=== PATIENT | female | born 1975 | race Caucasian/White ===

== ENCOUNTER 2016-10-08 13:41 | Emergency (ER) | payer BC, OTHER ==
[~2016-10-08] VITALS: Ht 160 cm; Wt 52.0 kg
[~2016-10-08 13:41] MED LIST: PERC5TAB12 PO
[2016-10-08 13:42] VITALS: BP 181/87; PULSE 115; RESP 24; TEMP 98.2; O2SAT 95
[2016-10-08] MEDS ORDERED: SODIUM CHLOR 0.9% 1000 ML INJ 1,000 ML IV SCH (14:17)
[2016-10-08] MEDS ORDERED: DICYCLOMINE HCL 20 MG/2 ML VIAL IM ONE (14:30)
[2016-10-08] MEDS ORDERED: SODIUM CHLORIDE 0.9% FLUSH 5 ML FLUSH IVF PRN (14:30)
[2016-10-08] MEDS ORDERED: LORazepam 2 MG/ML VIAL IV PUSH ONE (14:30)
--- NOTE | 2016-10-08 14:43 | PD ---
HPI . Abdominal pain with nausea and vomiting. Chief Complaint: GI Complaint Time Seen by Provider: 14:17 Travel History International Travel<30 days: No Contact w/Intl Traveler<30days: No Traveled to known affect area: No History of Present Illness HPI Patient presents with the acute onset of abdominal pain with nausea and vomiting. Symptoms started this morning. He believes that she is constipated. She has taken laxatives at home. She vomited the first dose of the laxative. She was able to keep down second dose of the laxative. She has not had any relief of her abdominal pain and constipation with laxative. Patient reports she is currently on amoxicillin and tramadol for a dental abscess. PFSH Past Medical History Medical other: Yes (basal cell cancer ) Influenza Vaccination: No ?: Not LMP: 09/14/16 Past Surgical History Surgical History: No Previous Surgery Social History Alcohol Use: No Tobacco Use: No Substance Use: No Allergies-Medications (Allergen,Severity, Reaction): Coded Allergies: Polysporin (Verified Allergy, Unknown, Itching, 11/29/13) TOPICAL OINTMENT Reported Meds & Prescriptions Reported Meds & Active Scripts Active Phenergan (Promethazine HCl) 25 Mg Tab 25 Mg PO Q6H PRN Reported Percocet 5-325 mg (Oxycodone/Acetaminophen) 5 Mg/325 Mg Tab 1-2 Tab PO Q6H PRN Review of Systems Except as stated in HPI: all other systems reviewed are Neg General / Constitutional: No: Fever, Chills HENT: Positive: Dental Difficulties Gastrointestinal: Positive: Nausea, Vomiting, Abdominal Pain, Constipation, No : Diarrhea Genitourinary: No: Urgency, Frequency, Dysuria Physical Exam Narrative GENERAL: The patient is lying on the stretcher in a position. She is very reluctant to lie flat on her back. SKIN: Warm and dry. HEAD: Atraumatic. Normocephalic. EYES: Pupils equal and round. ENT: No nasal bleeding or discharge. Mucous membranes pink and moist. NECK: Trachea midline. CARDIOVASCULAR: Regular rate and rhythm. RESPIRATORY: No accessory muscle use. GASTROINTESTINAL: Abdomen soft. Diffusely tender. Nondistended. MUSCULOSKELETAL: No obvious deformities. No edema. NEUROLOGICAL: Awake and alert. No obvious cranial nerve deficits. Motor grossly within normal limits. Normal speech. PSYCHIATRIC: Appropriate mood and affect; insight and judgment normal. Data Data Last Documented VS Vital Signs Date Time Temp Pulse Resp B/P Pulse Ox O2 Delivery O2 Flow Rate FiO2 10/08/16 13:42 98.2 115 24 181/87 95 Orders Complete Blood Count With Diff (10/08/16 14:17) Comprehensive Metabolic Panel (10/08/16 14:17) Lipase (10/08/16 14:17) Lactic Acid (10/08/16 14:17) Urinalysis - C+S If Indicated (10/08/16 14:17) Abdomen, Flat & Upright (10/08/16 ) Iv Access Insert/Monitor (10/08/16 14:17) Sodium Chlor 0.9% 1000 Ml Inj (Ns 1000 M (10/08/16 14:17) Sodium Chloride 0.9% Flush (Ns Flush) (10/08/16 14:30) Electrocardiogram (10/08/16 14:17) Lorazepam Inj (Ativan Inj) (10/08/16 14:30) Dicyclomine Inj (Bentyl Inj) (10/08/16 14:30) Ed Urine Pregnancytest Poc (10/08/16 14:19) Ondansetron Inj (Zofran Inj) (10/08/16 15:25) Ondansetron Inj (Zofran Inj) (10/08/16 15:30) Labs Laboratory Tests Test 10/08/16 10/08/16 14:36 16:14 White Blood Count 12.5 TH/MM3 Red Blood Count 4.75 MIL/MM3 Hemoglobin 15.3 GM/DL Hematocrit 44.0 % Mean Corpuscular Volume 92.6 FL Mean Corpuscular Hemoglobin 32.1 PG Mean Corpuscular Hemoglobin 34.7 % Concent Red Cell Distribution Width 12.4 % Platelet Count 232 TH/MM3 Mean Platelet Volume 8.7 FL Neutrophils (%) (Auto) 87.8 % Lymphocytes (%) (Auto) 8.0 % Monocytes (%) (Auto) 3.6 % Eosinophils (%) (Auto) 0.1 % Basophils (%) (Auto) 0.5 % Neutrophils # (Auto) 11.0 TH/MM3 Lymphocytes # (Auto) 1.0 TH/MM3 Monocytes # (Auto) 0.5 TH/MM3 Eosinophils # (Auto) 0.0 TH/MM3 Basophils # (Auto) 0.1 TH/MM3 CBC Comment DIFF FINAL Differential Comment Sodium Level 140 MEQ/L Potassium Level 4.0 MEQ/L Chloride Level 104 MEQ/L Carbon Dioxide Level 21.8 MEQ/L Anion Gap 14 MEQ/L Blood Urea Nitrogen 11 MG/DL Creatinine 0.85 MG/DL Estimat Glomerular Filtration 74 ML/MIN Rate Random Glucose 163 MG/DL Lactic Acid Level 3.4 mmol/L Calcium Level 9.0 MG/DL Total Bilirubin 0.7 MG/DL Aspartate Amino Transf 15 U/L (AST/SGOT) Alanine Aminotransferase 18 U/L (ALT/SGPT) Alkaline Phosphatase 77 U/L Total Protein 7.9 GM/DL Albumin 4.2 GM/DL Lipase 83 U/L Urine Color YELLOW Urine Turbidity CLEAR Urine pH 8.5 Urine Specific [place] 1.013 Urine Protein TRACE mg/dL Urine Glucose (UA) TRACE mg/dL Urine Ketones 40 mg/dL Urine Occult Blood TRACE Urine Nitrite NEG Urine Bilirubin NEG Urine Urobilinogen LESS THAN 2.0 MG/DL Urine Leukocyte Esterase NEG Urine RBC 18 /hpf Urine WBC LESS THAN 1 /hpf Urine Squamous Epithelial <1 /hpf Cells Urine Bacteria RARE /hpf Urine Mucus FEW /lpf Microscopic Urinalysis Comment CULT NOT INDICATED MDM Medical Decision Making Medical Screen Exam Complete: Yes Emergency Medical Condition: Yes Differential Diagnosis Differential diagnosis of abdominal pain includes but is not limited to gastritis, pancreatitis, hepatitis, gastroenteritis, gallbladder disease, constipation, urinary retention, UTI, peptic ulcer disease, diverticulitis or appendicitis Narrative Course Patient presents for evaluation of acute abdominal pain associated with vomiting. She believes that she is constipated. Last Impressions Abdomen X-Ray 10/08/16 0000 Signed Impressions: Service Date/Time: Saturday, October 08, 2016 14:56 - CONCLUSION: No acute abnormality is identified. Gonzalo Estrada MD 3:07 PM Patient reports that her symptoms are resolved. CBC & BMP Diagram 10/08/16 14:36 Her lactic acid was elevated at 3.4. However, the patient reports that she is markedly improved. I will not repeat the lactic acid level. UA shows evidence of dehydration but no infection. Diagnosis Primary Impression: Vomiting Qualified Code: R11.2 - Non-intractable vomiting with nausea, unspecified vomiting type Additional Impression: Abdominal pain Qualified Code: R10.84 - Generalized abdominal pain Scripts Promethazine (Phenergan)25 Mg Tab25 Mg PO Q6H PRN (Nausea/Vomiting) #10 TAB Ref 0 Prov:Genesis Sanchez MD 10/08/16 Disposition: 01 DISCHARGE HOME Condition: Stable Genesis Sanchez MD Oct 08, 2016 14:43
--- NOTE | 2016-10-08 14:59 | RADRPT ---
EXAM DATE/TIME: 10/08/2016 14:56 [facility] COMPARISON: No previous studies available for comparison. INDICATIONS : Abdomen Pain MEDICAL HISTORY : None. SURGICAL HISTORY : None. ENCOUNTER: Initial ACUITY: 1 day PAIN SCORE: 10/10 LOCATION: Abdomen FINDINGS: Supine and upright views of the abdomen demonstrate air within bowel in a nonobstructive pattern. No organomegaly or abnormal calcifications are identified. No abnormal mass effect is appreciated. Uprig ht image demonstrates no free intraperitoneal air or significant air-fluid level. Visualized bones de monstrate no acute finding and lower lung zones are clear. CONCLUSION: No acute abnormality is identified. Gonzalo Estrada MD on October 08, 2016 at 14:57 Board Certified Radiologist. This report was verified electronically.
[2016-10-08 15:08] LABS: BASOPHIL # 0.1 TH/MM3 (0-0.2); BASOPHIL % 0.5 % (0.0-2.0); EOSINOPHIL % 0.1 % (0.0-4.0); HEMO FLAGS DIFF FINAL; MEAN CELL VOLUME 92.6 FL (80.0-100.0); MEAN CORPUSCULAR HEMOGLOBIN 32.1 PG (27.0-34.0); MEAN CORPUSCULAR HGB CONC 34.7 % (32.0-36.0); MONO % 3.6 % (0.0-8.0); NEUT % 87.8 % (16.0-70.0); PLATELET COUNT 232 TH/MM3 (150-450); RED BLOOD COUNT 4.75 MIL/MM3 (4.00-5.30); RED CELL DISTRIBUTION WIDTH 12.4 % (11.6-17.2); WHITE BLOOD COUNT 12.5 TH/MM3 (4.0-11.0)
[2016-10-08 15:25] LABS: ALT (GPT) 18 U/L (10-53); ANION GAP 14 MEQ/L (5-15); AST (GOT) 15 U/L (15-37); BICARBONATE 21.8 MEQ/L (21.0-32.0); BLOOD UREA NITROGEN 11 MG/DL (7-18); CHLORIDE 104 MEQ/L (98-107); GLOMERULAR FILTRATION RATE 74 ML/MIN (>89); SODIUM (NA) 140 MEQ/L (136-145)
[2016-10-08] MEDS ORDERED: ONDANSETRON HCL 4 MG/2 ML VIAL ONE (15:25)
[2016-10-08 15:28] LABS: ALKALINE PHOSPHATASE 77 U/L (45-117); TOTAL BILIRUBIN ADULT 0.7 MG/DL (0.2-1.0)
[2016-10-08] MEDS ORDERED: ONDANSETRON HCL 4 MG/2 ML VIAL IV PUSH ONE (15:30)
[2016-10-08 16:56] LABS: BACTERIA, URINE RARE /hpf; BLOOD, URINE TRACE (NEG); COMMENT (UR) CULT NOT INDICATED; CULTURE IF INDICATED CULT NOT INDICATED; GLUCOSE,URINE TRACE mg/dL (NEG); KETONE, URINE 40 mg/dL (NEG); MUCUS URINE FEW /lpf (OCC); NITRITE,URINE NEG (NEG); PH, URINE 8.5 (5.0-8.5); SQUAMOUS EPITHELIAL CELL URINE <1 /hpf (0-5); URINE COLOR YELLOW (YELLW/STRAW)
[2016-10-08] MEDS ORDERED: PROM25TA5 PO (16:56)
--- NOTE | 2016-10-09 18:01 | EKG ---
Date Performed: 10/08/2016 Time Performed: 15:29:16 PTAGE: 41 years EKG: SINUS BRADYCARDIA PROLONGED QT INTERVAL CONSIDER ANTEROLATERAL ISCHEMIA ABNORMAL ECG NO PREVIOUS TRACING DOCTOR: Armen Noriega Interpretating Date/Time 10/09/2016 18:00:36
== END 2016-10-08 18:09 | disposition home or self-care (01) ==
LOC: NEPA 13:41
DX: R11.10 Vomiting, unspecified (principal); R10.84 Generalized abdominal pain
CPT/HCPCS: 74020; 80053; 81001; 83605; 83690; 84703; 85025; 93005; 96361; 96372; 96374; 96375; J0500; J2060; J2405; J7030

== ENCOUNTER 2016-10-11 09:00 | Inpatient (IN) | payer OTHER ==
[~2016-10-11] VITALS: Ht 160 cm; Wt 51.5 kg
[~2016-10-11 09:00] MED LIST changes: +PROM25TA5 PO
[2016-10-11 09:02] VITALS: BP 179/104; PULSE 123; RESP 20; TEMP 98.3; O2SAT 97
--- NOTE | 2016-10-11 10:15 | RADRPT ---
EXAM DATE/TIME: 10/11/2016 09:59 [facility] COMPARISON: No previous studies available for comparison. INDICATIONS : Abdomen pain. Taking medication for mouth abscess x 3 days. MEDICAL HISTORY : constipation problem in 2012 SURGICAL HISTORY : None. ENCOUNTER: Initial ACUITY: 3 days PAIN SCORE: 9/10 LOCATION: Bilateral abdomen FINDINGS: Supine view of the abdomen was performed. The abdominal bowel gas pattern is normal. No abnormal ma sses, calcifications, or organomegaly is seen. Copious amount of stool within the left colon. The oss eous structures are unremarkable. CONCLUSION: Copious amount of stool the left colon. No acute abnormalities. Fam Suero MD on October 11, 2016 at 10:13 Board Certified Radiologist. This report was verified electronically.
[2016-10-11] MEDS ORDERED: TRAM50TA PO ×2 (10:21)
[2016-10-11] MEDS ORDERED: AMOX500T PO ×2 (10:21)
[2016-10-11] MEDS ORDERED: MINERAL OIL ENEMA 118 ML BTL RECTAL ONE (11:15)
[2016-10-11] MEDS ORDERED: IOHEXOL 350 MG/ML 10 ML VIAL (for RAD DIAG) IV ONE (11:19)
[2016-10-11 11:20] LABS: AUTOMATED NEUTROPHIL # 21.6 TH/MM3 (1.8-7.7); BASOPHIL # 0.1 TH/MM3 (0-0.2); BASOPHIL % 0.4 % (0.0-2.0); EOSINOPHIL % 0.1 % (0.0-4.0); HEMATOCRIT 46.2 % (35.0-46.0); LYMPH % 7.7 % (9.0-44.0); MEAN CELL VOLUME 92.1 FL (80.0-100.0); MEAN CORPUSCULAR HEMOGLOBIN 32.2 PG (27.0-34.0); MONO % 6.8 % (0.0-8.0); PLATELET COUNT 271 TH/MM3 (150-450); RED BLOOD COUNT 5.02 MIL/MM3 (4.00-5.30); RED CELL DISTRIBUTION WIDTH 12.2 % (11.6-17.2); WHITE BLOOD COUNT 25.5 TH/MM3 (4.0-11.0)
[2016-10-11 11:21] LABS: HEMO FLAGS AUTO DIFF
[2016-10-11 11:26] LABS: BLOOD, URINE MOD (NEG); COMMENT (UR) CULTURE INDICATED; CULTURE IF INDICATED CULTURE INDICATED; GLUCOSE,URINE NEG (NEG); KETONE, URINE 10 mg/dL (NEG); MUCUS URINE FEW /lpf (OCC); NITRITE,URINE NEG (NEG); SQUAMOUS EPITHELIAL CELL URINE 1 /hpf (0-5); URINE COLOR YELLOW (YELLW/STRAW)
[2016-10-11 11:43] LABS: ALKALINE PHOSPHATASE 87 U/L (45-117); ALT (GPT) 17 U/L (10-53); ANION GAP 10 MEQ/L (5-15); AST (GOT) 10 U/L (15-37); BICARBONATE 26.9 MEQ/L (21.0-32.0); BLOOD UREA NITROGEN 7 MG/DL (7-18); CHLORIDE 98 MEQ/L (98-107); GLOMERULAR FILTRATION RATE 100 ML/MIN (>89); POTASSIUM 3.3 MEQ/L (3.5-5.1); SODIUM (NA) 135 MEQ/L (136-145); TOTAL BILIRUBIN ADULT 1.1 MG/DL (0.2-1.0)
[2016-10-11 11:54] LABS: BANDS 3 % (0-6); BASOPHILS 1 % (0-2); NEUTROPHIL # MANUAL DIFF 21.2 TH/MM3 (1.8-7.7); PLATELET ESTIMATE SMEAR NORMAL (NORMAL); PLATELET MORPHOLOGY NORMAL (NORMAL); POLYS (SEG NEUTROPHILS) 80 % (16-70); SCAN/DIFF FINAL DIFF MANUAL; WBC DIFF SAMPLE 100
[2016-10-11] MEDS ORDERED: SODIUM CHLOR 0.9% 1000 ML INJ 1,000 ML IV ONE (12:15)
[2016-10-11] MEDS ORDERED: KETOROLAC TROMETHAMINE 30 MG/ML (IVP) VIAL IV PUSH ONE (12:15)
[2016-10-11] MEDS ORDERED: ONDANSETRON HCL 4 MG/2 ML VIAL IV PUSH ONE (12:15)
--- NOTE | 2016-10-11 13:10 | PD ---
HPI Chief Complaint: Abdominal Pain Time Seen by Provider: 10:36 Travel History International Travel<30 days: No Contact w/Intl Traveler<30days: No Traveled to known affect area: No History of Present Illness HPI 41yo F with no significant PMH presents with persistent abdominal pain for 3 days. Pt has been having NBNB vomiting. Denies any fever, chest pain, sob, vaginal discharge. Pt just started her menstrual period yesterday. Pt was seen here a few days ago with same pain and had negative xray and discharge with phenergan. States that it is not working anymore and she is in a lot of pain. PFSH Past Medical History Cancer: Yes (SKIN CANCER FACE AND BACK ) Integumentary: Yes (PSORIASIS) ?: Not LMP: 10/10/16 : 2 Para: 2 Social History Alcohol Use: No Tobacco Use: No Substance Use: No Allergies-Medications (Allergen,Severity, Reaction): Coded Allergies: Polysporin (Verified Allergy, Unknown, Itching, 10/11/16) TOPICAL OINTMENT Reported Meds & Prescriptions Reported Meds & Active Scripts Active Phenergan (Promethazine HCl) 25 Mg Tab 25 Mg PO Q6H PRN Reported Tramadol (Tramadol HCl) 50 Mg Tab 50 Mg PO Q6H PRN Amoxicillin 500 Mg Tab 500 Mg PO TID Review of Systems Except as stated in HPI: all other systems reviewed are Neg Physical Exam Narrative GENERAL: 41yo F not in acute distress. SKIN: Warm and dry. HEAD: Atraumatic. Normocephalic. EYES: Pupils equal and round. No scleral icterus. No injection or drainage. ENT: No nasal bleeding or discharge. Mucous membranes pink and moist. NECK: Trachea midline. No JVD. CARDIOVASCULAR: Regular rate and rhythm. No murmur appreciated. RESPIRATORY: No accessory muscle use. Clear to auscultation. Breath sounds equal bilaterally. GASTROINTESTINAL: Abdomen soft, +TTP lower abdomen. No rebound tenderness or guarding. PELVIC: +Blood in vaginal vault. No vaginal discharge. No CMT. Mild right adnexal ttp. No mass palpated. MUSCULOSKELETAL: No obvious deformities. No clubbing. No cyanosis. No edema. NEUROLOGICAL: Awake and alert. No obvious cranial nerve deficits. Motor grossly within normal limits. Normal speech. PSYCHIATRIC: Appropriate mood and affect; insight and judgment normal. Data Data Last Documented VS Vital Signs Date Time Temp Pulse Resp B/P Pulse Ox O2 Delivery O2 Flow Rate FiO2 10/11/16 14:00 98.1 90 22 123/99 99 Room Air Orders Complete Blood Count With Diff (10/11/16 09:26) Comprehensive Metabolic Panel (10/11/16 09:26) Lipase (10/11/16 09:26) Lactic Acid (10/11/16 09:26) Urinalysis - C+S If Indicated (10/11/16 09:26) Abdomen, Kub Only (10/11/16 09:26) Ed Urine Pregnancytest Poc (10/11/16 09:26) Mineral Oil Enema (Fleet Mineral Oil Monika (10/11/16 11:15) Iohexol 350 Inj (Omnipaque 350 Inj) (10/11/16 11:19) Urine Culture (10/11/16 11:00) Ketorolac Inj (Toradol Inj) (10/11/16 12:15) Ondansetron Inj (Zofran Inj) (10/11/16 12:15) Sodium Chlor 0.9% 1000 Ml Inj (Ns 1000 M (10/11/16 12:15) Ceftriaxone Inj (Rocephin Inj) (10/11/16 13:30) Ct Abd/Pel W Iv Contrast(Rout) (10/11/16 ) Admit Order (Ed Use Only) (10/11/16 14:30) Labs Laboratory Tests Test 10/11/16 11:00 White Blood Count 25.5 TH/MM3 Red Blood Count 5.02 MIL/MM3 Hemoglobin 16.2 GM/DL Hematocrit 46.2 % Mean Corpuscular Volume 92.1 FL Mean Corpuscular Hemoglobin 32.2 PG Mean Corpuscular Hemoglobin 35.0 % Concent Red Cell Distribution Width 12.2 % Platelet Count 271 TH/MM3 Mean Platelet Volume 8.4 FL Neutrophils (%) (Auto) 85.0 % Lymphocytes (%) (Auto) 7.7 % Monocytes (%) (Auto) 6.8 % Eosinophils (%) (Auto) 0.1 % Basophils (%) (Auto) 0.4 % Neutrophils # (Auto) 21.6 TH/MM3 Lymphocytes # (Auto) 2.0 TH/MM3 Monocytes # (Auto) 1.7 TH/MM3 Eosinophils # (Auto) 0.0 TH/MM3 Basophils # (Auto) 0.1 TH/MM3 CBC Comment AUTO DIFF Differential Total Cells 100 Counted Neutrophils % (Manual) 80 % Band Neutrophils % 3 % Lymphocytes % 13 % Monocytes % 3 % Basophils % 1 % Neutrophils # (Manual) 21.2 TH/MM3 Differential Comment FINAL DIFF MANUAL Platelet Estimate NORMAL Platelet Morphology Comment NORMAL Red Cell Morphology Comment NORMAL Urine Color YELLOW Urine Turbidity CLEAR Urine pH 8.0 Urine Specific [place] 1.011 Urine Protein 100 mg/dL Urine Glucose (UA) NEG mg/dL Urine Ketones 10 mg/dL Urine Occult Blood MOD Urine Nitrite NEG Urine Bilirubin NEG Urine Urobilinogen LESS THAN 2.0 MG/DL Urine Leukocyte Esterase SMALL Urine RBC 176 /hpf Urine WBC 9 /hpf Urine Squamous Epithelial 1 /hpf Cells Urine Amorphous Sediment OCC Urine Mucus FEW /lpf Microscopic Urinalysis Comment CULTURE INDICATED Sodium Level 135 MEQ/L Potassium Level 3.3 MEQ/L Chloride Level 98 MEQ/L Carbon Dioxide Level 26.9 MEQ/L Anion Gap 10 MEQ/L Blood Urea Nitrogen 7 MG/DL Creatinine 0.66 MG/DL Estimat Glomerular Filtration 100 ML/MIN Rate Random Glucose 109 MG/DL Lactic Acid Level 1.1 mmol/L Calcium Level 8.9 MG/DL Total Bilirubin 1.1 MG/DL Aspartate Amino Transf 10 U/L (AST/SGOT) Alanine Aminotransferase 17 U/L (ALT/SGPT) Alkaline Phosphatase 87 U/L Total Protein 8.3 GM/DL Albumin 3.6 GM/DL Lipase 76 U/L [facility] Medical Decision Making Medical Screen Exam Complete: Yes Emergency Medical Condition: Yes Differential Diagnosis Cystitis vs. appendicitis vs. colitis Narrative Course 41yo F with lower abdominal pain for 3 days. Pt was initially seen at triage and xray abdomen ordered there that showed copious of stool in left colon. Pt given fleet enema and was able to have a small bowel movement. Labs reviewed, leukocytosis at 25.5. K: 3.3. Lactic acid 1.1. UA showed small leukocyte, pt given ceftriaxone 1gm IV. CTa/p showed complex fluid in the posterior pelvis measuring 6.0 x 9.4 cm. Mixed attenuation fluid is seen centrally. There is also some minimal pelvic free fluid. Possibilities include hemorrhagic cyst, tubo ovarian abscess, ruptured ectopic or other etiology. Although I did not see any vaginal discharge, I am still concern about abscess with elevated WBC and CT scan result of the pelvic fluid collection. Pt reevaluated at bedside and abdominal pain has improved after toradol 30mg IV. Pt given NS IVF and zofran. Discussed with OB hospitalist Dr. Suresh and accepted to his service. Diagnosis Primary Impression: Pelvic fluid collection Admitting Information Admitting Physician Requests: Admit Malissa Redd DO Oct 11, 2016 13:10
[2016-10-11] MEDS ORDERED: cefTRIAXone INJ 1,000 MG in SODIUM CHLORIDE 0.9% INJ 100 ML IV ONE (13:30)
[2016-10-11 14:00] VITALS: BP 123/99; PULSE 90; RESP 22; TEMP 98.1; O2SAT 99
--- NOTE | 2016-10-11 14:59 | RADRPT ---
EXAM DATE/TIME: 10/11/2016 11:10 [facility] COMPARISON: No previous studies available for comparison. INDICATIONS : Bilateral mid-abdominal pain, nausea and vomiting. IV CONTRAST: 90 cc Omnipaque 350 (iohexol) IV ORAL CONTRAST: No oral contrast ingested. RADIATION DOSE: 6.03 CTDIvol (mGy) MEDICAL HISTORY : None SURGICAL HISTORY : None. ENCOUNTER: Initial ACUITY: 4 - 6 days PAIN SCALE: 6/10 LOCATION: Bilateral abdomen TECHNIQUE: Volumetric scanning of the abdomen and pelvis was performed. Using automated exposure control and ad justment of the mA and/or kV according to patient size, radiation dose was kept as low as reasonably achievable to obtain optimal diagnostic quality images. FINDINGS: LOWER LUNGS: The visualized lower lungs are clear. LIVER: Homogeneous density without lesion. There is no dilation of the biliary tree. No calcified gallston es. Low-density liver lesions posterior right lobe measure 1.5 cm, nonspecific. SPLEEN: Normal size without lesion. PANCREAS: Within normal limits. KIDNEYS: Normal in size and shape. There is no mass, stone or hydronephrosis. ADRENAL GLANDS: Within normal limits. VASCULAR: There is no aortic aneurysm. BOWEL/MESENTERY: The stomach, small bowel, and colon demonstrate no acute abnormality. There is no free intraperitone al air or fluid. ABDOMINAL WALL: Within normal limits. RETROPERITONEUM: There is no lymphadenopathy. BLADDER: No wall thickening or mass. REPRODUCTIVE: Complex fluid collection in the posterior pelvis measuring 6.0 x 9.4 cm. Mixed attenuation fluid is s een centrally. There is also some minimal pelvic free fluid. This may be arising from the right ovary and is nonspecific. INGUINAL: There is no lymphadenopathy or hernia. MUSCULOSKELETAL: Within normal limits for patient age. CONCLUSION: 1. Complex fluid collection in the pelvis could be arising from the right ovary and differential poss ibilities include hemorrhagic cyst, tubo-ovarian abscess, ruptured ectopic or other etiology. Correla tion with clinical history. 2. Nonspecific low density in the liver likely benign measures 1.5 cm. Fam Suero MD on October 11, 2016 at 11:37 Board Certified Radiologist. This report was verified electronically.
[2016-10-11] MEDS ORDERED: ONDANSETRON HCL 4 MG/2 ML VIAL IVP PRN (15:45)
[2016-10-11] MEDS ORDERED: ACETAMINOPHEN 325 MG TAB PO PRN (15:45)
[2016-10-11] MEDS ORDERED: SODIUM CHLORIDE 0.9% FLUSH 5 ML FLUSH FLUSH PRN (15:45)
[2016-10-11] MEDS ORDERED: NALOXONE HCL 0.4 MG/ML AMP IV PRN (15:45)
[2016-10-11] MEDS ORDERED: POTASSIUM CHLORIDE 10 MEQ CONTROLLED RELEASE TAB PO ONE (16:00)
[2016-10-11] MEDS ORDERED: AMPICILLIN-SULBACTAM INJ 3 GM in SODIUM CHLORIDE 0.9% INJ 100 ML IV SCH (16:00)
[2016-10-11] MEDS: metroNIDAZOLE 500 MG INJ 100 ML IV SCH ×3 (16:11→23:48)
--- NOTE | 2016-10-11 16:21 | HHI.HP ---
HPI Chief Complaint abdominal pain, nausea, vomiting Date Seen: Oct 11, 2016 Time Seen: 16:02 Travel History International Travel<30 Days: No Contact w/Intl Traveler<30Days: No Known Affected Area: No History of Present Illness HPI Patient is a 41 year old with no significant past medical history who presented to the ED with worsening abdominal pain. She was given amoxicillin and tramadol as an outpatient for a dental abscess which resolved prior to presenting to the ED on October 08. She presented to the ED on October 08, 2016 (3 days ago) shortly after the onset of her abdominal pain and nausea/vomiting symptom, specifically she had lower abdominal pain bilaterally. Blood work was collected which showed a white count of 12.5 with a left shift. BMP was unremarkable, however, lactic acid was 3.4. UA was unremarkable. She believes that part of her symptomatology is that she has had constipation, last bowel movement 3 days ago. She tried laxatives at home but vomited up the doses. She was discharged home with anti-emetics. She states that the pain was bearable until this morning when she woke up with "miserable" abdominal pain. She denies having symptoms like this before, with only hospitalizations being related to her normal vaginal deliveries in the past. She does note that she is on her period at this time, and these have always been regular occurring every 28 days without any significant pain in the past. Her BULLDOZER PRESS OPERATOR is Dr. Spencer. On review of systems, patient denies fevers, chills, current nausea or vomiting. Last vomiting episode was Monday. History Past Medical History Narrative Medical Recent dental abscess, treated with amoxicillin Obstetric History Obstetric History 2 normal spontaneous vaginal deliveries, most recently 3 years ago History of normal Pap smears since cryotherapy on the cervix 20 years ago Past Surgical History Narrative Surgical Hernia repair as an infant, basal cell carcinoma removal of the right jehovah's witness, HPV cryotherapy 20 years ago on the cervix Family History Narrative Family History Mom has a history of some type of BULLDOZER PRESS OPERATOR cyst requiring total hysterectomy at the age of 50 Social History Alcohol Use: No Tobacco Use: No Substance Abuse: No Allergies-Medications (Allergen,Severity, Reaction): Coded Allergies: Polysporin (Verified Allergy, Unknown, Itching, 10/11/16) TOPICAL OINTMENT Home Meds Active Scripts Promethazine (Phenergan)25 Mg Tab25 Mg PO Q6H PRN (Nausea/Vomiting) #10 TAB Ref 0 Prov:Genesis Sanchez MD 10/08/16 Reported Medications Tramadol 50 Mg Tab50 Mg PO Q6H PRN (PAIN) Ref 0 10/11/16 Amoxicillin 500 Mg Hpa652 Mg PO TID Ref 0 10/11/16 Discontinued Reported Medications Oxycodone-Acetaminophen 5-325 mg (Percocet 5-325 mg)5 Mg/325 Mg Tab1-2 Tab PO Q6H PRN (PAIN AND/OR AGITATION) #20 TAB 11/30/13 Review of Systems Except as stated in HPI: all other systems reviewed are Neg Gastrointestinal: No: Nausea, Vomiting Genitourinary: Vaginal Bleeding (on her period), No: Discharge, Menorrhagia Physical Exam Vital Signs Date Time Temp Pulse Resp B/P Pulse Ox O2 Delivery O2 Flow Rate FiO2 10/11/16 14:00 98.1 90 22 123/99 99 Room Air 10/11/16 09:02 98.3 123 20 179/104 97 Narrative GENERAL: Thin, well-developed female in no acute distress. SKIN: Warm and dry. No rashes. HEAD: Normocephalic and atraumatic. EYES: No scleral icterus. No injection or drainage. ENT: No nasal drainage noted. Mucous membranes pink. Airway patent. NECK: Supple, trachea midline. No JVD. CARDIOVASCULAR: Regular rate and rhythm without murmurs, gallops, or rubs. RESPIRATORY: Breath sounds equal bilaterally. No accessory muscle use. ABDOMEN/GI: Abdomen soft, thin, mildly tender to palpation in the lower abdominal quadrants, bowel sounds present, no rebound or guarding. GENITOURINARY: External Genitalia: intact and normal in appearance Cervix: Firm closed uterus. Notable is a tender outpouching posterior to the cervix suggesting abscess formation. Patient has some mild cervical motion tenderness. Membranes: Not applicable Uterine Contractions: Not applicable EXTREMITIES: No cyanosis or edema. 1+ pulses in the upper and lower extremities. Data Data Vital Signs Reviewed: Yes (MAXIMUM TEMPERATURE 98.3, pulse 90, respirations 22 , BP 123/99, 99% on room air) Orders Complete Blood Count With Diff (10/11/16 09:26) Comprehensive Metabolic Panel (10/11/16 09:26) Lipase (10/11/16 09:26) Lactic Acid (10/11/16 09:26) Urinalysis - C+S If Indicated (10/11/16 09:26) Abdomen, Kub Only (10/11/16 09:26) Ed Urine Pregnancytest Poc (10/11/16 09:26) Mineral Oil Enema (Fleet Mineral Oil Monika (10/11/16 11:15) Iohexol 350 Inj (Omnipaque 350 Inj) (10/11/16 11:19) Urine Culture (10/11/16 11:00) Ketorolac Inj (Toradol Inj) (10/11/16 12:15) Ondansetron Inj (Zofran Inj) (10/11/16 12:15) Sodium Chlor 0.9% 1000 Ml Inj (Ns 1000 M (10/11/16 12:15) Ceftriaxone Inj (Rocephin Inj) (10/11/16 13:30) Ct Abd/Pel W Iv Contrast(Rout) (10/11/16 ) Admit Order (Ed Use Only) (10/11/16 14:30) Gc And Chlamydia Pcr (10/11/16 15:06) Wet Prep Profile (10/11/16 15:06) Admit To Inpatient (10/11/16 ) Code Status (10/11/16 15:42) Vital Signs (Adult) Q4H (10/11/16 15:42) Activity Oob Ad Estefany (10/11/16 15:42) Diet Regular Basic (10/11/16 Dinner) Sodium Chloride 0.9% Flush (Ns Flush) (10/11/16 15:45) Sodium Chloride 0.9% Flush (Ns Flush) (10/11/16 21:00) Acetaminophen (Tylenol) (10/11/16 15:45) Ondansetron Inj (Zofran Inj) (10/11/16 15:45) Basic Metabolic Panel (Bmp) (10/12/16 06:00) Complete Blood Count With Diff (10/12/16 06:00) Scd Bilateral/Knee High MARICRUZ.BID (10/11/16 15:42) Naloxone Inj (Narcan Inj) (10/11/16 15:45) Inpatient Certification (10/11/16 ) Us Pelvis Comp Amortization Schedule Clerk/Non-Preg (10/11/16 ) Ampicillin-Sulbactam Inj (Unasyn Inj) (10/11/16 16:00) Metronidazole 500 Mg Inj (Flagyl 500 Mg (10/11/16 15:45) Metronidazole 500 Mg Inj (Flagyl 500 Mg (10/11/16 23:30) Potassium Chloride (Kcl) (10/11/16 16:00) Labs Laboratory Tests Test 10/11/16 11:00 White Blood Count 25.5 Red Blood Count 5.02 Hemoglobin 16.2 Hematocrit 46.2 Mean Corpuscular Volume 92.1 Mean Corpuscular Hemoglobin 32.2 Mean Corpuscular Hemoglobin 35.0 Concent Red Cell Distribution Width 12.2 Platelet Count 271 Mean Platelet Volume 8.4 Neutrophils (%) (Auto) 85.0 Lymphocytes (%) (Auto) 7.7 Monocytes (%) (Auto) 6.8 Eosinophils (%) (Auto) 0.1 Basophils (%) (Auto) 0.4 Neutrophils # (Auto) 21.6 Lymphocytes # (Auto) 2.0 Monocytes # (Auto) 1.7 Eosinophils # (Auto) 0.0 Basophils # (Auto) 0.1 CBC Comment AUTO DIFF Differential Total Cells 100 Counted Neutrophils % (Manual) 80 Band Neutrophils % 3 Lymphocytes % 13 Monocytes % 3 Basophils % 1 Neutrophils # (Manual) 21.2 Differential Comment FINAL DIFF MANUAL Platelet Estimate NORMAL Platelet Morphology Comment NORMAL Red Cell Morphology Comment NORMAL Urine Color YELLOW Urine Turbidity CLEAR Urine pH 8.0 Urine Specific [place] 1.011 Urine Protein 100 Urine Glucose (UA) NEG Urine Ketones 10 Urine Occult Blood MOD Urine Nitrite NEG Urine Bilirubin NEG Urine Urobilinogen LESS THAN 2.0 Urine Leukocyte Esterase SMALL Urine RBC 176 Urine WBC 9 Urine Squamous Epithelial 1 Cells Urine Amorphous Sediment OCC Urine Mucus FEW Microscopic Urinalysis Comment CULTURE INDICATED Sodium Level 135 Potassium Level 3.3 Chloride Level 98 Carbon Dioxide Level 26.9 Anion Gap 10 Blood Urea Nitrogen 7 Creatinine 0.66 Estimat Glomerular Filtration 100 Rate Random Glucose 109 Lactic Acid Level 1.1 Calcium Level 8.9 Total Bilirubin 1.1 Aspartate Amino Transf 10 (AST/SGOT) Alanine Aminotransferase 17 (ALT/SGPT) Alkaline Phosphatase 87 Total Protein 8.3 Albumin 3.6 Lipase 76 Date/Time Procedure Status Source Growth 10/11/16 11:00 Urine Culture Worksheet Urine Clean Catch Pending Assessment/Plan Problem List: (1) Pelvic fluid collection (2) Abdominal pain (3) Constipation (4) Vomiting Plan: Last episode Monday, Zofran when necessary. EKG performed October 08 showing NSR Assessment and Plan 41-year-old female admitted with CT findings suggestive of ovarian abscess. She'll be admitted for IV antibiotics and close monitoring. She has not had fever, however, white count increased from 12.5-25 over 3 days time. Lactic acid is 1.1 today, and other lab work shows no evidence of organ dysfunction. Abdomen X-Ray 10/11/16 0926 Signed Impressions: Service Date/Time: Tuesday, October 11, 2016 09:59 - CONCLUSION: Copious amount of stool the left colon. No acute abnormalities. Fam Suero MD Abdomen/Pelvis CT 10/11/16 0000 Signed Impressions: Service Date/Time: Tuesday, October 11, 2016 11:10 - CONCLUSION: 1. Complex fluid collection in the pelvis could be arising from the right ovary and differential possibilities include hemorrhagic cyst, tubo-ovarian abscess, ruptured ectopic or other etiology. Correlation with clinical history. 2. Nonspecific low density in the liver likely benign measures 1.5 cm. Fam Suero MD Tubo-Ovarian abscess CT with IV contrast showing a complex fluid collection as documented above. POC test negative Will order pelvic ultrasound to get a better view of fluid collection properties We will initiate broad-spectrum IV antibiotics, specifically Unasyn (3 g every 6 hours) and Flagyl (1 g loading dose, followed by 500 mg every 8 hours). We'll monitor patient symptoms and labs, Collect blood culture if febrile, WBC worsens, or worsening symptoms Patient received 1 L bolus in ED, will start IV fluids at maintenance rate, patient is reportedly tolerating by mouth at this time For pain: Tylenol and ibuprofen alternating for mild to moderate pain, morphine 2mg every 3hr IV as needed for breakthrough pain Zofran IV PRN nausea and vomiting GC and Chlamydia pending, wet prep profile pending The patient shows no significant improvement after 72 hours or if patient becomes more symptomatically before that time, may require OR drainage Constipation Last bowel movement reportedly Monday, and she states she has had constipation since starting antibiotics as outpatient for dental abscess Of note, abdominal x-ray today and three days ago show significant stool in the colon We'll start Marguerite-Colace 2 tabs daily Give MiraLAX as well to stimulate movement abscess may be impeding bowel movements Fluids/Electrolytes/Nutrition/Prophylaxis Fluids: NS @ 100ml/hr given low PO, hypoNa, hypoK, infection, and constipation Electrolytes: monitor and replete as needed, 40meQ potassium ordered Nutrition: Regular diet DVT Prophylaxis: Patient is ambulatory, low risk, not indicated Discharge Planning Likely 2-3 days. Improvement of symptoms Virginia Cantrell MD R1 Oct 11, 2016 16:20
[2016-10-11] MEDS ORDERED: POLYETHYLENE GLYCOL 17 GM PKG PO ONE (16:30)
[2016-10-11] MEDS ORDERED: MORPHINE SULFATE 4 MG/ML INJ IV PUSH PRN (16:30)
[2016-10-11] MEDS ORDERED: IBUPROFEN 400 MG TAB PO PRN (16:30)
[2016-10-11] MEDS ORDERED: ENALAPRILAT 1.25 MG/ML VIAL IV PUSH PRN (16:45)
--- NOTE | 2016-10-11 17:16 | HHI.HP ---
History & Physical H&P Patient is 41-year-old white female currently on her menstrual cycle who presents with increasing lower abdominal pain mainly right sided. The patient was seen in the emergency room 3 days ago with nausea and vomiting and an lesser pain and was given amoxicillin and Phenergan and sent home. Today she returns with a great increase in the lower abdominal pain. She denies fever but may have had chills night she was unsure, she's had some nausea and vomiting but lesser so today. When she was here 3 days ago her white count was 12.5 today white count 25 so it has doubled in 3 days and has a large left shift , she had a CT of the abdomen shows a 9 x 6 complex fluid collection in the posterior cul-de-sac consistent with an abscess Patient's past medical history significant for cryotherapy on the cervix for mild dysplasia, 2 vaginal deliveries. Her BALER OPERATOR doctor is Dr. Spencer in [place] and he does not come here but she did Exam--patient's abdomen is flat and minimally tender in the right lower quadrant and no rebound tenderness anywhere in the abdomen, no masses noted, normal liver span noted Thick exam reveals normal external genitalia and vagina, the cervix and pushed directly anterior right behind the symphysis by a posterior mass there is positive cervical motion tenderness Just below the cervix there is a bulging mass that is palpable that is extremely tender to palpation and this is apparently the abscess in the posterior cul-de-sac. Uterus is anteflexed mid position on CT scan exam there' s no adnexal masses CT scan--is a 9 x 6 cm fluid collection in the posterior cul-de-sac is complex consistent with an abscess Impression is right tubo-ovarian abscess Plan is to admit for IV antibiotic therapy broad spectrum with good anaerobic coverage for the abscess will begin on Unasyn and Flagyl IV And we'll anticipate improvement the patient's condition and decrease in her pain. If over period of 4872 hours that she does not have any significant improvement then I would recommend cul-de-sac drainage in the operating room to drain this abscess Mauricio Suresh II, MD Oct 11, 2016 17:16
[2016-10-11] MEDS: AMPICILLIN-SULBACTAM INJ 3 GM in SODIUM CHLORIDE 0.9% INJ 100 ML IV SCH (17:18)
[2016-10-11] MEDS: DOCUSATE SODIUM 50 MG/SENNA 8.6 MG TAB PO SCH (17:24)
[2016-10-11 18:00] VITALS: BP 146/94; PULSE 90; RESP 18; TEMP 97.1; O2SAT 97
[2016-10-11] MEDS: SODIUM CHLORIDE 0.9% FLUSH 5 ML FLUSH FLUSH SCH (19:30)
[2016-10-11 19:31] LABS: CHLAMYDIA PCR NOT DETECTED (NOT DETECT); NEISSERIA PCR NOT DETECTED (NOT DETECT)
[2016-10-11 20:00] VITALS: BP 144/92; PULSE 99; RESP 16; TEMP 97.3; O2SAT 100
[2016-10-12] VITALS: BP 144/103; PULSE 91; RESP 16; TEMP 97.9; O2SAT 100
[2016-10-12] MEDS: AMPICILLIN-SULBACTAM INJ 3 GM in SODIUM CHLORIDE 0.9% INJ 100 ML IV SCH ×5 (01:03→23:56)
[2016-10-12 04:00] VITALS: BP 140/90; PULSE 87; RESP 16; TEMP 98.6; O2SAT 99
[2016-10-12] MEDS: SODIUM CHLOR 0.9% 1000 ML INJ 1,000 ML IV SCH ×2 (05:41→19:00)
[2016-10-12 07:23] LABS: AUTOMATED NEUTROPHIL # 15.2 TH/MM3 (1.8-7.7); BASOPHIL % 0.2 % (0.0-2.0); EOSINOPHIL # 0.1 TH/MM3 (0-0.4); EOSINOPHIL % 0.5 % (0.0-4.0); HEMATOCRIT 38.5 % (35.0-46.0); HEMO FLAGS DIFF FINAL; LYMPH % 11.3 % (9.0-44.0); LYMPHOCYTE # 2.1 TH/MM3 (1.0-4.8); MEAN CELL VOLUME 93.4 FL (80.0-100.0); MEAN CORPUSCULAR HEMOGLOBIN 31.4 PG (27.0-34.0); MEAN CORPUSCULAR HGB CONC 33.6 % (32.0-36.0); MONO % 7.3 % (0.0-8.0); NEUT % 80.7 % (16.0-70.0); PLATELET COUNT 229 TH/MM3 (150-450); RED BLOOD COUNT 4.12 MIL/MM3 (4.00-5.30); RED CELL DISTRIBUTION WIDTH 12.5 % (11.6-17.2); WHITE BLOOD COUNT 18.8 TH/MM3 (4.0-11.0)
[2016-10-12 07:45] LABS: BICARBONATE 24.8 MEQ/L (21.0-32.0); POTASSIUM 3.3 MEQ/L (3.5-5.1)
[2016-10-12 08:00] VITALS: BP 142/88; PULSE 87; RESP 18; TEMP 97.3; O2SAT 99
[2016-10-12] MEDS: SODIUM CHLORIDE 0.9% FLUSH 5 ML FLUSH FLUSH SCH ×2 (09:00→20:48)
[2016-10-12] MEDS: DOCUSATE SODIUM 50 MG/SENNA 8.6 MG TAB PO SCH (09:14)
[2016-10-12] MEDS: metroNIDAZOLE 500 MG INJ 100 ML IV SCH ×3 (09:14→23:56)
--- NOTE | 2016-10-12 09:56 | HHI.HP ---
History & Physical H&P Subjective: Patient says she has done well since being admitted. Last time she had pain was in the ED yesterday. She states that the Toradol she was given in the ED yesterday must have completely cleared up her pain. Fever, chills, nausea, vomiting, abdominal pain, pelvic pain. She does note that she had a white fluffy small piece of discharge all urinating last night, which is not repeated itself. She notes that her vaginal bleeding (on her period) is also decreased today. She is eating and drinking without consultation. Note that she has not had a bowel movement yet, took the Marguerite-Colace but has not yet taken the MiraLAX. Last BM 3 days ago. Objective: GENERAL: Well-appearing female in no acute distress. Ultrasound earth science technician at bedside. SKIN: Warm and dry. No rashes. HEAD: Atraumatic. Normocephalic. CARDIOVASCULAR: Regular rate and rhythm. No murmurs. RESPIRATORY: No accessory muscle use. Clear to auscultation. Breath sounds equal bilaterally. GASTROINTESTINAL: Abdomen soft, non-tender, nondistended. Hepatic and splenic margins not palpable. MUSCULOSKELETAL: Extremities without clubbing, cyanosis, or edema. No obvious deformities. NEUROLOGICAL: Awake and alert. No obvious cranial nerve deficits. Motor grossly within normal limits. Five out of 5 muscle strength in the arms and legs. Normal speech. PSYCHIATRIC: Appropriate mood and affect; insight and judgment normal. Assessment and Plan: 41-year-old female admitted with CT abdomen findings suggestive of right tubo- ovarian abscess formation. She has remained afebrile since admission, with labs significant for leukocytosis which is improving and mild hypokalemia. Plan is continue IV antibiotics as below, control pain, and follow-up abscess on vaginal US due to be completed today. WBC has improved today. She is mildly hypokalemic to 3.3 today, unchanged from yesterday. Lactic acid is 1.1 at admission. Lab work at admission showed no evidence of organ dysfunction. Abdomen X-Ray 10/11/16 0926 Signed Impressions: Service Date/Time: Tuesday, October 11, 2016 09:59 - CONCLUSION: Copious amount of stool the left colon. No acute abnormalities. Fam Suero MD Abdomen/Pelvis CT 10/11/16 0000 Signed Impressions: Service Date/Time: Tuesday, October 11, 2016 11:10 - CONCLUSION: 1. Complex fluid collection in the pelvis could be arising from the right ovary and differential possibilities include hemorrhagic cyst, tubo-ovarian abscess, ruptured ectopic or other etiology. Correlation with clinical history. 2. Nonspecific low density in the liver likely benign measures 1.5 cm. Fam Suero MD Tubo-Ovarian abscess CT with IV contrast showing a complex fluid collection as documented above. It measures 9.4 x 6.0 cm. Abscess is palpable on cervical exam posterior to cervix. POC test negative Pelvic ultrasound pending Continue broad-spectrum IV antibiotics, specifically Unasyn (3 g every 6 hours) and Flagyl (1 g loading dose, followed by 500 mg every 8 hours). Monitor patient symptoms and labs Collect blood culture if febrile, WBC worsens, or worsening symptoms Patient received 1 L bolus in ED, will start IV fluids at maintenance rate, patient is reportedly tolerating by mouth at this time For pain: Tylenol and ibuprofen alternating for mild to moderate pain, morphine 2mg every 3hr IV as needed for breakthrough pain Zofran IV PRN nausea and vomiting GC and Chlamydia pending, wet prep profile pending The patient shows no significant improvement after 72 hours or if patient becomes more symptomatically before that time, may require OR drainage Constipation Last bowel movement reportedly Monday, and she states she has had constipation since starting antibiotics as outpatient for dental abscess Of note, abdominal x-ray today and three days ago show significant stool in the colon We'll start Marguerite-Colace 2 tabs daily Give MiraLAX as well to stimulate movement abscess may be impeding bowel movements Fluids/Electrolytes/Nutrition/Prophylaxis Fluids: By mouth hydration, will discontinue normal saline @ 100c/hr Electrolytes: monitor and replete as needed, 40meQ potassium given yesterday Nutrition: Regular diet DVT Prophylaxis: Patient is ambulatory, low risk, not indicated Vigrinia Cantrell MD R1 Oct 12, 2016 09:56
[2016-10-12] MEDS ORDERED: KETOROLAC TROMETHAMINE 60 MG/2 ML (IM) VIAL IM PRN (10:00)
--- NOTE | 2016-10-12 10:04 | HHI.PR ---
SCALLOP DREDGER Note Note TURBINE INSPECTOR Progress Note Subjective: Patient says she has done well since being admitted. Last time she had pain was in the ED yesterday. She states that the Toradol she was given in the ED yesterday must have completely cleared up her pain. Denies fever, chills, nausea , vomiting, abdominal pain, pelvic pain. She does note that she had a white fluffy small piece of discharge all urinating last night. She notes that her vaginal bleeding (on her period) is also decreased today. She is eating and drinking without complication. Note that she has not had a bowel movement yet, took the Marguerite-Colace but has not yet taken the MiraLAX. Last BM 3 days ago. Objective: GENERAL: Well-appearing female in no acute distress. Ultrasound computer systems technician at bedside. SKIN: Warm and dry. No rashes. HEAD: Atraumatic. Normocephalic. CARDIOVASCULAR: Regular rate and rhythm. No murmurs. RESPIRATORY: No accessory muscle use. Clear to auscultation. Breath sounds equal bilaterally. GASTROINTESTINAL: Abdomen soft, non-tender, nondistended. Hepatic and splenic margins not palpable. MUSCULOSKELETAL: Extremities without clubbing, cyanosis, or edema. No obvious deformities. NEUROLOGICAL: Awake and alert. No obvious cranial nerve deficits. Motor grossly within normal limits. Five out of 5 muscle strength in the arms and legs. Normal speech. PSYCHIATRIC: Appropriate mood and affect; insight and judgment normal. Assessment and Plan: 41-year-old female admitted with CT abdomen findings suggestive of right tubo- ovarian abscess formation. She has remained afebrile since admission, with labs significant for leukocytosis which is improving and mild hypokalemia. Plan is continue IV antibiotics as below, control pain, and follow-up abscess on vaginal US due to be completed today. WBC has improved today. She is mildly hypokalemic to 3.3 today, unchanged from yesterday. Lactic acid is 1.1 at admission. Lab work at admission showed no evidence of organ dysfunction. Abdomen X-Ray 10/11/16 0926 Signed Impressions: Service Date/Time: Tuesday, October 11, 2016 09:59 - CONCLUSION: Copious amount of stool the left colon. No acute abnormalities. Fam Suero MD Abdomen/Pelvis CT 10/11/16 0000 Signed Impressions: Service Date/Time: Tuesday, October 11, 2016 11:10 - CONCLUSION: 1. Complex fluid collection in the pelvis could be arising from the right ovary and differential possibilities include hemorrhagic cyst, tubo-ovarian abscess, ruptured ectopic or other etiology. Correlation with clinical history. 2. Nonspecific low density in the liver likely benign measures 1.5 cm. Fam Suero MD Tubo-Ovarian abscess CT with IV contrast showing a complex fluid collection as documented above. It measures 9.4 x 6.0 cm. Abscess is palpable on cervical exam posterior to cervix. POC test negative Pelvic ultrasound pending Continue broad-spectrum IV antibiotics, specifically Unasyn (3 g every 6 hours) and Flagyl (1 g loading dose, followed by 500 mg every 8 hours). Monitor patient symptoms and labs Collect blood culture if febrile, WBC worsens, or worsening symptoms Patient received 1 L bolus in ED, will start IV fluids at maintenance rate, patient is reportedly tolerating by mouth at this time For pain: Tylenol and ibuprofen alternating for mild to moderate pain, morphine 2mg every 3hr IV as needed for breakthrough pain Zofran IV PRN nausea and vomiting GC and Chlamydia pending, wet prep profile pending The patient shows no significant improvement after 72 hours or if patient becomes more symptomatically before that time, may require OR drainage Constipation Last bowel movement reportedly Monday, and she states she has had constipation since starting antibiotics as outpatient for dental abscess Of note, abdominal x-ray today and three days ago show significant stool in the colon We'll start Marguerite-Colace 2 tabs daily Give MiraLAX as well to stimulate movement abscess may be impeding bowel movements Fluids/Electrolytes/Nutrition/Prophylaxis Fluids: By mouth hydration, will discontinue normal saline @ 100c/hr Electrolytes: monitor and replete as needed, 40meQ potassium given yesterday Nutrition: Regular diet DVT Prophylaxis: Patient is ambulatory, low risk, not indicated Virginia Cantrell MD R1 Oct 12, 2016 10:04 Virginia Cantrell MD R1 Oct 12, 2016 10:04
--- NOTE | 2016-10-12 10:28 | RADRPT ---
EXAM DATE/TIME: 10/12/2016 09:16 [facility] COMPARISON: CT ABDOMEN & PELVIS W CONTRAST, October 11, 2016, 11:10. INDICATIONS : Pelvic pain, abnormal CT. MEDICAL HISTORY : Skin cancer to face and back. Psoriasis. SURGICAL HISTORY : None. ENCOUNTER: Initial ACUITY: 4-6 days PAIN SCORE: 3/10 LOCATION: Bilateral pelvis MEASUREMENTS: UTERUS: 9.3 x 3.5 x 4.4 cm ENDOMETRIAL STRIPE: 4 mm RIGHT OVARY: 4.4 x 2.7 x 3.6 cm LEFT OVARY: 2.9 x 1.8 x 2.8 cm FINDINGS: Uterus is normal. Both ovaries are well-seen and within normal limits. Several subcentimeter follicle s are seen on both sides. 9.5 x 5.8 x 7.6 cm heterogeneous collection seen in the cul-de-sac is. No internal vascularity is dem onstrated. To the left of this is a fairly simple appearing cyst that measures approximately 6.0 x 5. 8 x 6.4 cm. These findings correspond well to the CT. CONCLUSION: 1. Large, complex fluid collection in the pelvic cul-de-sac. Abscess is considered unlikely as there is no significant hyperemia. Debris from a recently hemorrhagic cyst would be in the differential. En dometrioma also conceivable. There is a fairly simple appearing cyst and/or fluid collection to the l eft of it. Clinical correlation and ultrasound surveillance to ensure resolution recommended. 2. No intrinsic abnormality seen of the uterus or either ovary. Gonzalo Robison MD on October 12, 2016 at 10:21 Board Certified Radiologist. This report was verified electronically.
[2016-10-12 12:00] VITALS: BP 131/95; PULSE 93; RESP 18; TEMP 97.5; O2SAT 99
[2016-10-12 16:00] VITALS: BP 136/91; PULSE 76; RESP 18; TEMP 98.2; O2SAT 99
[2016-10-12 20:00] VITALS: BP 150/87; PULSE 79; RESP 16; TEMP 97.6; O2SAT 96
[2016-10-13] VITALS: BP 137/95; PULSE 85; RESP 16; TEMP 96.3; O2SAT 98
[2016-10-13] MEDS ORDERED: ZOLPIDEM TARTRATE 10 MG TAB PO PRN (00:30)
[2016-10-13] MEDS: SODIUM CHLOR 0.9% 1000 ML INJ 1,000 ML IV SCH (05:00)
[2016-10-13 05:11] VITALS: BP 145/96; PULSE 95; RESP 16; TEMP 97.3; O2SAT 97
[2016-10-13] MEDS: AMPICILLIN-SULBACTAM INJ 3 GM in SODIUM CHLORIDE 0.9% INJ 100 ML IV SCH (05:40)
[2016-10-13] MEDS: SODIUM CHLORIDE 0.9% FLUSH 5 ML FLUSH FLUSH SCH (07:23)
[2016-10-13] MEDS: metroNIDAZOLE 500 MG INJ 100 ML IV SCH (07:26)
[2016-10-13] MEDS: DOCUSATE SODIUM 50 MG/SENNA 8.6 MG TAB PO SCH (07:27)
[2016-10-13 07:50] VITALS: BP 148/99; PULSE 81; RESP 20; TEMP 97.5; O2SAT 99
--- NOTE | 2016-10-13 08:42 | HHI.PR ---
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 She notes some constipation discomfort but had one bowel movement last night. Last time she had severe pain was in the ED two days ago. No fever, chills, nausea, vomiting, abdominal pain, pelvic pain. She is eating and drinking complication. Took Miralax and is getting Marguerite-colace for constipation. No fevers, chills. Notes her mother had non-cancerous abdominal or pelvic tumors but no immediate family members with ovarian cancer. Objective: GENERAL: Well-appearing female in no acute distress. SKIN: Warm and dry. No rashes. HEAD: Atraumatic. Normocephalic. CARDIOVASCULAR: Regular rate and rhythm. No murmurs. RESPIRATORY: No accessory muscle use. Clear to auscultation. Breath sounds equal bilaterally. GASTROINTESTINAL: Abdomen soft, non-tender, nondistended. No evidence of ascites. Hepatic and splenic margins not palpable. MUSCULOSKELETAL: Extremities without clubbing, cyanosis, or edema. No obvious deformities. NEUROLOGICAL: Awake and alert. No obvious cranial nerve deficits. Motor grossly within normal limits. Normal speech. PSYCHIATRIC: Appropriate mood and affect; insight and judgment normal. Assessment and Plan: 41-year-old female admitted with CT abdomen findings initially suggestive of right tubo-ovarian abscess formation. Lactic acid is 1.1 at admission. Lab work at admission showed no evidence of organ dysfunction. Ultrasound pelvis and abdomen shows large complex fluid collection without significant loculation; it is more suggestive of hemorrhagic cyst fluid collection rather than abscess. However, patient did have elevated WBC count on admission with left shift which is not often noted with hemorrhagic cysts. She remains afebrile since admission , with labs significant for leukocytosis which is improving and mild hypokalemia. Plan is to continue IV antibiotics until WBC within normal range, and discharge patient with PO antibiotics and follow-up US in 7-10 days. Pelvis Ultrasound 10/12/16 0000 Signed Impressions: Service Date/Time: Wednesday, October 12, 2016 09:16 - CONCLUSION: 1. Large, complex fluid collection in the pelvic cul-de-sac. Abscess is considered unlikely as there is no significant hyperemia. Debris from a recently hemorrhagic cyst would be in the differential. Endometrioma also conceivable. There is a fairly simple appearing cyst and/or fluid collection to the left of it. Clinical correlation and ultrasound surveillance to ensure resolution recommended. 2. No intrinsic abnormality seen of the uterus or either ovary. Gonzalo Robison MD Abdomen X-Ray 10/11/16 0926 Signed Impressions: Service Date/Time: Tuesday, October 11, 2016 09:59 - CONCLUSION: Copious amount of stool the left colon. No acute abnormalities. Fam Suero MD Abdomen/Pelvis CT 10/11/16 0000 Signed Impressions: Service Date/Time: Tuesday, October 11, 2016 11:10 - CONCLUSION: 1. Complex fluid collection in the pelvis could be arising from the right ovary and differential possibilities include hemorrhagic cyst, tubo-ovarian abscess, ruptured ectopic or other etiology. Correlation with clinical history. 2. Nonspecific low density in the liver likely benign measures 1.5 cm. Fam Suero MD Hemorrhagic Ovarian Cyst vs. TOA CT with IV contrast showing a complex fluid collection as documented above. It measures 9.4 x 6.0 cm. Abscess is palpable on cervical exam posterior to cervix. POC test negative. GC and Chlamydia negative. Wet prep profile negative. Pelvic ultrasound as above Differential includes TOA (e.g. caused by ascending infection), hemorrhagic cyst. Low suspicion for malignancy. Continue broad-spectrum IV antibiotics until WBC normal, specifically Unasyn (3 g every 6 hours) and Flagyl (1 g loading dose, followed by 500 mg every 8 hours) . Collect blood culture if febrile, WBC worsens, or worsening symptoms D/C IVF as tolerating PO For pain: Toradol IV PRN moderate pain, Tylenol and ibuprofen PO alternating for mild to moderate pain, morphine 2mg every 3hr IV as needed for breakthrough pain Zofran IV PRN nausea and vomiting The patient shows no significant improvement after 72 hours or if patient becomes more symptomatically before that time, may require OR drainage Constipation Improving Last bowel movement reportedly Monday, and she states she has had constipation since starting antibiotics as outpatient for dental abscess Of note, abdominal x-ray today and three days ago show significant stool in the colon Continue Marguerite-Colace 2 tabs daily S/p Miralax October 12 Fluids/Electrolytes/Nutrition/Prophylaxis Fluids: By mouth hydration, will discontinue normal saline @ 100c/hr Electrolytes: monitor and replete as needed, 40meQ potassium x 1 given, will give second dose today if indicated (BMP pending) Nutrition: Regular diet DVT Prophylaxis: Patient is ambulatory, low risk, not indicated (Virginia Cantrell MD R1) Attestation Discussed care with patient. Repeat CBC at noon with possible discharge on antibiotics Ultrasound c/w possible ruptured hemorrhagic cyst (Delilah Carmona MD) Virginia Cantrell MD R1 Oct 13, 2016 08:42 Delilah Carmona MD Oct 13, 2016 09:36
[2016-10-13 09:00] VITALS: BP 122/78; PULSE 78; RESP 18; TEMP 98.2; O2SAT 99
[2016-10-13 09:16] LABS: AUTOMATED NEUTROPHIL # 13.4 TH/MM3 (1.8-7.7); BASOPHIL % 0.3 % (0.0-2.0); EOSINOPHIL # 0.2 TH/MM3 (0-0.4); HEMATOCRIT 38.5 % (35.0-46.0); HEMO FLAGS DIFF FINAL; LYMPH % 10.9 % (9.0-44.0); LYMPHOCYTE # 1.8 TH/MM3 (1.0-4.8); MEAN CELL VOLUME 93.1 FL (80.0-100.0); MEAN CORPUSCULAR HEMOGLOBIN 31.9 PG (27.0-34.0); MEAN CORPUSCULAR HGB CONC 34.3 % (32.0-36.0); MONO % 5.9 % (0.0-8.0); NEUT % 81.9 % (16.0-70.0); PLATELET COUNT 281 TH/MM3 (150-450); RED BLOOD COUNT 4.14 MIL/MM3 (4.00-5.30); RED CELL DISTRIBUTION WIDTH 12.3 % (11.6-17.2); WHITE BLOOD COUNT 16.3 TH/MM3 (4.0-11.0)
[2016-10-13 09:42] LABS: BICARBONATE 25.6 MEQ/L (21.0-32.0); POTASSIUM 3.4 MEQ/L (3.5-5.1)
[2016-10-13] MEDS ORDERED: DOXY1CAP91 PO (10:20)
[2016-10-13] MEDS ORDERED: IBUP400T20 PO (10:20)
[2016-10-13] MEDS ORDERED: TYLETAB34 PO (10:20)
--- NOTE | 2016-10-13 10:20 | HHI.DCPOC ---
Discharge Care Plan Diagnosis: (1) Pelvic fluid collection (2) Abdominal pain (3) Constipation Goals to Promote Your Health * To prevent worsening of your condition and complications * To maintain your health at the optimal level Directions to Meet Your Goals Take your medications as prescribed Follow your dietary instruction Follow activity as directed Keep your appointments as scheduled Take your immunizations and boosters as scheduled If your symptoms worsen call your PCP, if no PCP go to Urgent Care Center or Emergency Room Smoking is Dangerous to Your Health. Avoid second hand smoke Call the 24-hour hour crisis hotline for domestic abuse at Virginia Cantrell MD R1 Oct 13, 2016 10:20
[2016-10-13 11:50] VITALS: BP 136/92; PULSE 92; RESP 20; TEMP 98.1; O2SAT 97
== END 2016-10-13 15:03 | disposition home or self-care (01) | DRG 759 ==
LOC: NEPE 09:00 → HOCB 14:32
PROVIDERS: ADMIT Obstetrics & Gynecology Maternal & Fetal Medicine; ATTEND Obstetrics & Gynecology Maternal & Fetal Medicine
DX: N70.93 Salpingitis and oophoritis, unspecified (principal); E87.6 Hypokalemia; K59.00 Constipation, unspecified; Z85.828 Personal history of other malignant neoplasm of skin
CPT/HCPCS: 74000; 74020; 74177; 76856; 80048; 80053; 81001; 83605; 83690; 84703; 85007; 85025; 85027; 87086; 87210; 87491; 87591; 93005; 96361; 96372; 96374; 96375; J0295; J0500; J0696; J1885; J2060; J2405; J7030; Q9967